=== PATIENT | male | born 1950 | race Caucasian/White ===

== ENCOUNTER 2018-05-23 14:37 | Inpatient (IN) | payer MEDICARE, OTHER ==
[~2018-05-23] VITALS: Ht 182.9 cm; Wt 102.1 kg
[2018-06-06] VITALS (13 sets, daily range): BP systolic 103–151; BP diastolic 53–78; PULSE 54–86; TEMP 97.1–98.1
[2018-06-06] MEDS ORDERED: CLARITIN 1010 MG/TAB (06:25)
[2018-06-07 00:06] VITALS: BP 111/56; PULSE 64; TEMP 98.5
[2018-06-07 04:01] VITALS: BP 120/67; PULSE 76; TEMP 98.4
[2018-06-07 07:07] VITALS: BP 110/62; PULSE 63; TEMP 97.9
[2018-06-07 12:10] VITALS: BP 116/72; PULSE 69; TEMP 98.7
[2018-06-07 16:14] VITALS: BP 114/69; PULSE 84; TEMP 99.3
[2018-06-07 19:07] VITALS: BP 119/70; PULSE 79; TEMP 99.1
[2018-06-08 00:17] VITALS: BP 136/69; PULSE 84; TEMP 98.5
[2018-06-08 03:42] VITALS: BP 132/76; PULSE 81; TEMP 98.2
[2018-06-08 07:13] VITALS: BP 158/78; PULSE 84; TEMP 98.3
[2018-06-08 12:34] VITALS: BP 145/80; PULSE 74; TEMP 98.3
== END 2018-06-08 16:05 | disposition home or self-care (01) | DRG 708 ==
LOC: INPTSU 06-06 05:33 → SURG 06-06 07:30
PROVIDERS: Urology
PROC: 0VT00ZZ Resection of Prostate, Open Approach (ICD-10-PCS; principal; 2018-06-06 07:30)
DX: C61 Malignant neoplasm of prostate (principal)
CPT/HCPCS: A9284; J0690; J1100; J1885; J2250; J2405; J2704; J3010; J3480; J7120

== ENCOUNTER → 2021-11-21 | Outpatient (CLI) | payer MEDICARE, OTHER ==
[~2021-11-21] MED LIST: CLARITIN 1010 MG/TAB; COLACE 100100 MG/CAP PO; NORCO 325 MG-51 TAB PO
== END ==
LOC: COL.LAB 09:22
DX: N28.89 Other specified disorders of kidney and ureter (principal)